=== PATIENT | male | born 1995 | race Caucasian/White ===

== ENCOUNTER 2017-03-02 17:31 | Emergency (ER) | payer OTHER ==
[2017-03-02] MEDS ORDERED: Sodium Chloride 0.9% 1,000 ML IV ONE ×2 (17:54→18:38)
[2017-03-02] MEDS ORDERED: Ondansetron 4 MG/2 ML SDV IV ONE (17:54)
[2017-03-02] MEDS ORDERED: Sodium Chloride 0.9% 10 ML Syringe FLUSH PRN (17:54)
--- NOTE | 2017-03-02 17:58 | EDM.PDOC ---
<Kyree Buchanan - Last Filed: 03/02/17 18:46> ED HPI GENERAL MEDICAL PROBLEM - General Chief Complaint: General Stated Complaint: NAUSEA,WEAKNESS, [id number] Time Seen by Provider: 03/02/17 17:58 Source of Information: Reports: Police, RN Notes Reviewed History Limitations: Reports: No Limitations - History of Present Illness INITIAL COMMENTS - FREE TEXT/NARRATIVE: Onset of nausea and general unwell feeling yesterday. Ate breakfast this morning and within an hour afterwards the nausea returned, felt mild fever and chills sensation but did not measure his temperature. Then he developed some vomiting and some abdominal ache and cramping in the left upper and lower quadrants. Denies diarrhea, constipation or urinary symptoms. States that he feels dehydrated and has no appetite. Prior to arrival he was laying down and felt lightheaded when he stood up suddenly. The lightheaded only lasted a few seconds and has not returned. Severity: Severe Improves with: Reports: None Worsens with: Reports: None Associated Symptoms: Reports: No Other Symptoms Generalized Pain Score (Numeric/FACES): 6 - Related Data Allergies Allergy/AdvReac Type Severity Reaction Status Date / Time No Known Allergies Allergy Verified 03/02/17 18:10 Home Meds: Home Meds . [No Known Home Meds] 03/02/17 [History] Social & Family History - Family History Family Medical History: Noncontributory ED ROS GENERAL - Review of Systems Review Of Systems: ROS reveals no pertinent complaints other than HPI. ED EXAM, GENERAL - Physical Exam Exam: See Below Exam Limited By: No Limitations General Appearance: Alert, WD/WN, No Apparent Distress, Other (acutely ill but nontoxic appearing) Eye Exam: Bilateral Eye: Normal Inspection Ears: Normal External Exam, Normal Canal, Hearing Grossly Normal, Normal TMs Nose: Normal Inspection, Normal Mucosa, No Blood Throat/Mouth: Normal Lips, Normal Teeth, Normal Gums, Normal Oropharynx, Normal Voice, No Airway Compromise, Other (dry oral membranes) Head: Atraumatic, Normocephalic Neck: Normal Inspection, Supple, Non-Tender, Full Range of Motion, Other (no nuchal rigidity.). No: Lymphadenopathy (L), Lymphadenopathy (R) Respiratory/Chest: No Respiratory Distress, Lungs Clear, Normal Breath Sounds, No Accessory Muscle Use, Chest Non-Tender Cardiovascular: Normal Peripheral Pulses, Regular Rate, Rhythm, No Edema, No Gallop, No JVD, No Murmur, No Rub, Tachycardia GI/Abdominal: Soft, Non-Tender, No Distention, Abnormal Bowel Sounds (slightly hyperactive). No: Guarding, Rigid, Rebound (Male) Exam: Deferred Rectal (Males) Exam: Deferred Back Exam: Normal Inspection, Full Range of Motion, NT Extremities: Normal Inspection, Normal Range of Motion, Non-Tender, Normal Capillary Refill, No Pedal Edema Neurological: Alert, Oriented, CN II-XII Intact, Normal Cognition, Normal Gait, No Motor/Sensory Deficits Psychiatric: Normal Affect, Normal Mood Skin Exam: Warm, Dry, Intact, Normal Color, No Rash Course - Vital Signs Last Recorded V/S: Last Vital Signs Temp 98.4 F 03/02/17 21:26 Pulse 102 H 03/02/17 21:26 Resp 16 03/02/17 21:26 BP 129/59 L 03/02/17 21:26 Pulse Ox 100 03/02/17 21:26 - Orders/Labs/Meds Orders: Active Orders 24 hr Category Date Time Status Peripheral IV Care [RC] . DIRECTED Care 03/02/17 17:54 Active Peripheral IV Insertion Adult [OM.PC] Stat Oth 03/02/17 17:54 Ordered Labs: Laboratory Tests 03/02/17 03/02/17 03/02/17 Range/Units 18:02 18:02 18:07 WBC 3.8 L (5.0-10.0) 10^3/uL RBC 5.07 (4.6-6.2) 10^6/uL Hgb 15.5 (14.0-18.0) g/dL Hct 43.7 (40.0-54.0) % MCV 86.2 (80-100) fL MCH 30.6 (27.0-34.0) pg MCHC 35.5 H (33.0-35.0) g/dL Plt Count 180 (150-450) 10^3/uL Neut % (Auto) 77.3 H (42.2-75.2) % Lymph % (Auto) 6.3 L (20.5-50.1) % Gove % (Auto) 16.1 H (2-8) % Eos % (Auto) 0.0 L (1.0-3.0) % Baso % (Auto) 0.3 (0.0-1.0) % Sodium 133 L (135-145) mmol/L Potassium 3.7 (3.6-5.0) mmol/L Chloride 101 (101-111) mmol/L Carbon Dioxide 22.0 (21.0-31.0) mmol/L Anion Gap 13.7 BUN 12 (7-18) mg/dL Creatinine 1.0 (0.6-1.3) mg/dL Est Cr Clr Drug Dosing 129.59 mL/min Estimated GFR (MDRD) > 60 BUN/Creatinine Ratio 12.00 Glucose 102 (74-105) mg/dL Calcium 9.2 (8.4-10.2) mg/dl Magnesium 1.6 L (1.8-2.5) mg/dL Total Bilirubin 1.0 (0.2-1.0) mg/dL AST 22 (10-42) IU/L ALT 18 (10-60) IU/L Alkaline Phosphatase 90 (42-121) IU/L Total Protein 7.3 (6.7-8.2) g/dl Albumin 4.5 (3.2-5.5) g/dl Globulin 2.8 Albumin/Globulin Ratio 1.61 Amylase 53 (28-100) U/L Lipase 18 L (22-51) U/L Urine Color Yellow (YELLOW) Urine Appearance Clear (CLEAR) Urine pH 8.5 (5.0-9.0) Ur Specific [place] 1.015 (1.005-1.030) Urine Protein Trace H (NEGATIVE) Urine Glucose (UA) Negative (NEGATIVE) Urine Ketones 40 H (NEGATIVE) Urine Occult Blood Negative (NEGATIVE) Urine Nitrite Negative (NEGATIVE) Urine Bilirubin Negative (NEGATIVE) Urine Urobilinogen 1.0 (0.2-1.0) mg/dL Ur Leukocyte Esterase Negative (NEGATIVE) Urine RBC 0-5 /HPF Urine WBC 0-5 (0-5/HPF) /HPF Ur Epithelial Cells Rare /HPF Meds: Medications Discontinued Medications Generic Name Dose Route Start Last Admin Trade Name Freq PRN Reason Stop Dose Admin Sodium Chloride 1,000 mls @ 999 mls/hr 03/02/17 17:54 03/02/17 18:18 Normal Saline IV 03/02/17 18:54 999 mls/hr .BOLUS ONE Administration Sodium Chloride 1,000 mls @ 999 mls/hr 03/02/17 18:38 03/02/17 19:02 Normal Saline IV 03/02/17 19:38 999 mls/hr .BOLUS ONE Administration Magnesium Sulfate 2 gm/ Premix 50 mls @ 25 mls/hr 03/02/17 18:39 03/02/17 18: 58 IV 03/02/17 20:38 25 mls/hr ONETIME ONE Administration Ondansetron HCl 4 mg 03/02/17 17:54 03/02/17 18:19 Zofran IV 03/02/17 17:55 4 mg ONETIME ONE Administration Ondansetron HCl Confirm 03/02/17 19:48 03/02/17 20:01 Zofran Odt Administered 03/02/17 19:49 Not Given Dose 16 mg .ROUTE .STK-MED ONE Sodium Chloride 10 ml 03/02/17 17:54 03/02/17 18:18 Saline Flush FLUSH 10 ml ASDIRECTED PRN Administration Keep Vein Open - Re-Assessments/Exams Free Text/Narrative Re-Assessment/Exam: 03/02/17 18:47 I explained the exam findings, results of all diagnostic tests, working diagnosis, and any potential or additionally considered diagnoses, treatment/ disposition plan, self/home care instructions, rational for the diagnosis/ treatment plan/disposition plan, anticipated course of illness, and follow up instructions to the pt and/or pts family or guardian. The pt and/or pts family or guardian acknowledges understanding of the above explanation(s), and of the signs and symptoms which should prompt the return of the pt to the ER should those or any other concerning symptoms develop. Departure - Departure Time of Disposition: 19:30 Disposition: Home, Self-Care 01 Condition: fair Clinical Impression: Dehydration Nausea & vomiting Qualifiers: Vomiting type: unspecified Vomiting Intractability: non-intractable Qualified Code(s): R11.2 - Nausea with vomiting, unspecified Heat exhaustion Qualifiers: Encounter type: initial encounter Qualified Code(s): T67.5XXA - Heat exhaustion , unspecified, initial encounter - Discharge Information Instructions: Dehydration, Adult, [id number], Heat Exhaustion Information Forms: ED Department Discharge Additional Instructions: Drink plenty of water, and non caffeinated fluids. Rest, and avoid prolonged heat exposure for the next 3 days. No running, exercise, PT, or physical exertion. Rx: Zofran 4mg Follow up in clinic in 3 days for recheck if not improved. Return to ER if worse at any time. <Michell Lassiter - Last Filed: 03/03/17 03:25> Course - Re-Assessments/Exams Free Text/Narrative Re-Assessment/Exam: 03/03/17 2200 Patient discharged following completion of IVF. No c/o. Vitals improved. Departure - Departure Time of Disposition: 21:30
[2017-03-02 18:37] LABS: CHLORIDE,CL 101 mmol/L (101-111); SODIUM,NA 133 mmol/L (135-145)
[2017-03-02] MEDS ORDERED: Magnesium Sulfate/Water 2 GM in Premix Bag 1 BAG IV ONE (18:39)
[2017-03-02] MEDS ORDERED: Ondansetron 4 MG Tab.DIS PO ONE (19:48)
[2017-03-02] MEDS ORDERED: Ondansetron 4 MG Tab.DIS ONE (19:48)
[2017-03-02 21:32] VITALS: BP 129/59
== END 2017-03-02 21:31 | disposition home or self-care (01) ==
LOC: DL.ED 17:31
DX: T67.5XXA Heat exhaustion, unspecified, initial encounter (principal); R19.7 Diarrhea, unspecified
CPT/HCPCS: 36415; 80053; 81001; 82150; 83690; 83735; 85025; 96361; 96365; 96366; 96375; 99284; A9270; J2405; J7030; J7050; J3475